=== PATIENT | female | born 1995 | race Caucasian/White ===

== ENCOUNTER 2022-02-13 23:06 | Emergency (ER) | payer BC ==
[~2022-02-13] VITALS: Ht 167.6 cm; Wt 55.0 kg
[2022-02-14] MEDS ORDERED: IBUPROFEN 600MG TABLET PO ONE (00:30)
[2022-02-14] MEDS ORDERED: TETANUS, DIPHTHERIA, PERTUSSIS VAC/PF 0.5ML (>10YR OLD) IM ONE ×2 (00:30→04:00)
[2022-02-14] MEDS ORDERED: ACETAMINOPHEN 325MG TABLET PO ONE (00:30)
[2022-02-14] MEDS ORDERED: DOXY100C5 MT (01:20)
[2022-02-14] MEDS ORDERED: CEPH500C2 MT (01:20)
[2022-02-14] MEDS ORDERED: LIDOCAINE HCL/EPINEPHRINE 1%-EPI 1:100,000 20 ML VIAL INFIL ONE (01:30)
[2022-02-14] MEDS ORDERED: CEPHALEXIN 250MG CAPSULE PO ONE (01:30)
[2022-02-14] MEDS ORDERED: DOXYCYCLINE HYCLATE 100MG CAPSULE PO ONE (01:30)
[2022-02-14] MEDS ORDERED: BACITRACIN ZINC OINT UDPKT TOP ONE (01:30)
[2022-02-14] MEDS ORDERED: LIDOCAINE HCL/EPINEPHRINE 1%-EPI 1:100,000 10 ML VIAL IJ SCH (01:45)
[2022-02-14] MEDS ORDERED: IBUPROFEN 600MG TABLET PO SCH (03:15)
[2022-02-14] MEDS ORDERED: CEPHALEXIN 250MG CAPSULE PO SCH (03:15)
[2022-02-14] MEDS ORDERED: DOXYCYCLINE HYCLATE 100MG CAPSULE PO SCH (03:15)
[2022-02-14] MEDS ORDERED: BACITRACIN ZINC OINT UDPKT TOP SCH (03:15)
[2022-02-14] MEDS: ACETAMINOPHEN 325MG TABLET PO SCH ×2 (03:41→04:43)
[2022-02-14 05:14] VITALS: BP 125/76
== END 2022-02-14 05:15 | disposition home or self-care (01) ==
LOC: ER 23:06
DX: S90.851A Superficial foreign body, right foot, initial encounter (principal); M79.671 Pain in right foot; W52.XXXA Crushed, pushed or stepped on by crowd or human stampede, initial encounter; Y93.89 Activity, other specified; Y92.89 Other specified places as the place of occurrence of the external cause; Y99.8 Other external cause status
CPT/HCPCS: 28192; 73630; 81025; 90471; 90715; 99284; J3490; Z7610